=== PATIENT | female | born 1975 | race Caucasian/White ===

== ENCOUNTER 2019-11-05 10:05 | Emergency (ER) | payer OTHER ==
[~2019-11-05] VITALS: Ht 165.1 cm; Wt 72.6 kg
[2019-11-05] MEDS ORDERED: TOPAMAX100 MG PO (10:25)
[2019-11-05] MEDS ORDERED: SPIRONOLACTONE100 M1 PO (10:26)
[2019-11-05] MEDS ORDERED: LEXAPRO 10 MG T10 M2 PO (10:26)
[2019-11-05] MEDS ORDERED: TRAZODONE 150150 M1 PO (10:26)
[2019-11-05 10:58] LABS: INFLUENZA A ANTIGEN Negative (Negative); INFLUENZA B ANTIGEN Negative (Negative)
[2019-11-05] MEDS ORDERED: ZPAK PO (11:17)
[2019-11-05] MEDS ORDERED: TESSALON PERLE100 MG PO (11:17)
[2019-11-05] MEDS ORDERED: TYLENOL WITH CO1 TA1 PO (11:17)
[2019-11-05 11:55] VITALS: BP 109/67
--- NOTE | 2019-11-06 08:52 | EKG ---
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
== END 2019-11-05 11:56 | disposition home or self-care (01) ==
LOC: M.ERS 10:05
PROVIDERS: Family Medicine
DX: J22 Unspecified acute lower respiratory infection (principal); J18.9 Pneumonia, unspecified organism; J40 Bronchitis, not specified as acute or chronic; G43.909 Migraine, unspecified, not intractable, without status migrainosus; Z88.1 Allergy status to other antibiotic agents; Z88.2 Allergy status to sulfonamides; Z90.49 Acquired absence of other specified parts of digestive tract; Z90.89 Acquired absence of other organs

== ENCOUNTER 2019-11-17 14:06 | Emergency (ER) | payer OTHER ==
[~2019-11-17] VITALS: Ht 165.1 cm; Wt 72.6 kg
[~2019-11-17 14:06] MED LIST: LEXAPRO 10 MG T10 M2 PO; SPIRONOLACTONE100 M1 PO; TESSALON PERLE100 MG PO; TOPAMAX100 MG PO; TRAZODONE 150150 M1 PO; TYLENOL WITH CO1 TA1 PO; ZPAK PO
[2019-11-17] MEDS ORDERED: MUCINEX600 MG PO (14:20)
[2019-11-17 14:41] LABS: ABSOLUTE BASOPHILS 0.1 thou/uL (0.0-0.2); ABSOLUTE EOSINOPHILS 0.1 thou/uL (0.0-0.7); ABSOLUTE LYMPHOCYTES 2.2 thou/uL (0.8-5.3); ABSOLUTE MONOCYTES 0.6 thou/uL (0.0-1.2); ABSOLUTE NEUTROPHILS 4.7 thou/uL (1.6-8.1); BASOPHILS 0.7 %; EOSINOPHILS 1.7 %; HEMATOCRIT 38.2 % (37.0-47.0); LYMPHOCYTES 28.9 %; MCH 29.2 pg (26.0-34.0); MCHC 34.1 g/dL (28.0-37.0); MCV 85.6 fL (80.0-100.0); MONOCYTES 7.7 %; MPV 8.8 fl. (7.2-11.1); NUCLEATED RBCS 0 /100WBC; PLATELET COUNT* 193 thou/uL (150-400); RBC 4.46 mil/uL (4.20-5.00); RDW-CV 14.1 % (10.5-14.5); WBC 7.7 thou/uL (4.0-11.0)
[2019-11-17 14:53] LABS: CALCIUM 8.7 mg/dL (8.5-10.1); CREATININE 0.7 mg/dL (0.6-1.3); POTASSIUM 3.4 mmol/L (3.5-5.1)
[2019-11-17 14:58] LABS: ALBUMIN 3.8 g/dL (3.4-5.0); TOTAL BILIRUBIN 0.2 mg/dL (<0.1-1.0); TOTAL PROTEIN 7.3 g/dL (6.4-8.2)
[2019-11-17 17:54] VITALS: BP 117/76
--- NOTE | 2019-11-18 11:01 | EKG ---
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 1536 1536 Fam Garces MD, FACC /EPI
== END 2019-11-17 17:55 | disposition home or self-care (01) ==
LOC: M.ERS 14:06
PROVIDERS: Physician Assistant
DX: R06.00 Dyspnea, unspecified (principal); G43.909 Migraine, unspecified, not intractable, without status migrainosus; Z88.1 Allergy status to other antibiotic agents; Z88.2 Allergy status to sulfonamides; Z90.49 Acquired absence of other specified parts of digestive tract; Z90.89 Acquired absence of other organs